=== PATIENT | female | born 1990 | race Two or more races ===

== ENCOUNTER 2016-08-24 15:22 | Emergency (ER) | payer OTHER ==
[~2016-08-24] VITALS: Ht 162.6 cm; Wt 71.2 kg
[~2016-08-24 15:22] MED LIST: AMOXICILLIN875 MG PO; FLAGYL500 MG PO; MOTRIN600 MG PO; Motrin PO; NAPROSYN500 MG PO; TAMIFLU75 MG PO; TRAMADOL HCL50 MG PO
[2016-08-24 15:28] VITALS: BP 142/93
[2016-08-24] MEDS ORDERED: MOTRIN800 MG PO (16:47)
[2016-08-24] MEDS ORDERED: NORCO 7.5/321 TABLET PO (16:47)
[2016-08-24] MEDS ORDERED: VALIUM5 MG PO (16:47)
== END 2016-08-24 17:11 | disposition home or self-care (01) ==
LOC: EME 15:22
DX: S16.1XXA Strain of muscle, fascia and tendon at neck level, initial encounter (principal); S39.012A Strain of muscle, fascia and tendon of lower back, initial encounter; X50.0XXA Overexertion from strenuous movement or load, initial encounter; Y99.0 Civilian activity done for income or pay; R51 Headache; R11.0 Nausea; R19.7 Diarrhea, unspecified; R42 Dizziness and giddiness
CPT/HCPCS: 99281; 99284

== ENCOUNTER 2017-04-29 17:10 | Emergency (ER) | payer OTHER ==
[~2017-04-29] VITALS: Ht 162.6 cm; Wt 73.5 kg
[~2017-04-29 17:10] MED LIST changes: +MOTRIN800 MG PO; +NORCO 7.5/321 TABLET PO; +VALIUM5 MG PO
[2017-04-29 18:39] VITALS: BP 119/82
== END 2017-04-29 18:39 | disposition home or self-care (01) ==
LOC: EME 17:10
PROC: 0HQFXZZ Repair Right Hand Skin, External Approach (ICD-10-PCS; principal; 2017-04-29)
DX: S61.411A Laceration without foreign body of right hand, initial encounter (principal); W25.XXXA Contact with sharp glass, initial encounter
CPT/HCPCS: 99281; 99284